=== PATIENT | female | born 1940 | race Caucasian/White ===

== ENCOUNTER 2023-11-11 10:07 | Outpatient (CLI) | payer MEDICARE | END 2023-11-11 10:08 | disposition home or self-care (01) | LOC: CSHCT 10:07 | PROVIDERS: ATTEND Surgery | DX: K43.6 Other and unspecified ventral hernia with obstruction, without gangrene (principal); K40.20 Bilateral inguinal hernia, without obstruction or gangrene, not specified as recurrent; K57.30 Diverticulosis of large intestine without perforation or abscess without bleeding; M16.12 Unilateral primary osteoarthritis, left hip | CPT/HCPCS: 72192 ==

== ENCOUNTER 2023-12-02 05:54 | Day surgery (SDC) | payer MEDICARE ==
[2023-11-30 12:43] VITALS: BMI 23.2
[2023-12-02] MEDS ORDERED: Bupivacaine PF 0.5% 30 ML VIAL ONE (06:43)
[2023-12-02] MEDS ORDERED: EPINEPHrine 1 MG/ML VIAL ONE (06:43)
[2023-12-02] MEDS ORDERED: PROPOFOL 20 ML ONE (07:46)
[2023-12-02] MEDS ORDERED: Fentanyl 250 MCG/5 ML VIAL ONE (07:46)
[2023-12-02] MEDS ORDERED: CEFAZOLIN 2 GM VIAL ONE (08:06)
[2023-12-02] MEDS ORDERED: Dexamethasone 4 mg/ml Vial ONE (08:13)
[2023-12-02] MEDS ORDERED: Ondansetron PF 4 MG/2 ML Vial ONE (08:13)
[2023-12-02] MEDS ORDERED: ePHEDrine Sulfate 50 MG/10 ML VIAL ONE (08:32)
[2023-12-02] MEDS ORDERED: Ketorolac Tromethamine 30 MG (1 mL) VIAL ONE (09:10)
[2023-12-02] MEDS ORDERED: Glycopyrrolate 0.2 MG/ML 5 ML SYRINGE ONE (09:13)
[2023-12-02] MEDS ORDERED: Acetaminophen 325 MG TAB PO PRN (09:25)
[2023-12-02] MEDS ORDERED: traMADol HCl 50 MG TAB PO PRN (09:25)
[2023-12-02] MEDS ORDERED: fentaNYL 50 mcg/mL 1 mL Vial ONE (09:40)
== END 2023-12-02 11:20 | disposition home or self-care (01) ==
LOC: CSHSDC 05:54
PROVIDERS: ATTEND Surgery
PROC: 0YUA4JZ Supplement Bilateral Inguinal Region with Synthetic Substitute, Percutaneous Endoscopic Approach (ICD-10-PCS; principal; 2023-12-02)
DX: K40.20 Bilateral inguinal hernia, without obstruction or gangrene, not specified as recurrent (principal); K45.8 Other specified abdominal hernia without obstruction or gangrene; I10 Essential (primary) hypertension; E78.5 Hyperlipidemia, unspecified; I47.10 Supraventricular tachycardia, unspecified; Z88.1 Allergy status to other antibiotic agents; Z88.5 Allergy status to narcotic agent; Z88.8 Allergy status to other drugs, medicaments and biological substances; Z79.82 Long term (current) use of aspirin
CPT/HCPCS: 49650; J0171; J3010; C1781; J0665; J1100; J1885; J2405; J2704